=== PATIENT | male | born 1970 | race Caucasian/White ===

== ENCOUNTER 2018-01-01 12:27 | Emergency (ER) | payer MEDICARE, MEDICAID ==
[~2018-01-01] VITALS: Ht 172.7 cm; Wt 167.0 kg
[~2018-01-01 12:27] MED LIST: PHEN-873 PO
[2018-01-01 12:30] VITALS: BP 157/90
[2018-01-01] MEDS ORDERED: TETanus/Pertussis (Acell)/Diphther VAC/PF (Tdap-Adult) 0.5ml syringe IM ONE (13:55)
== END 2018-01-01 14:12 | disposition home or self-care (01) ==
LOC: ER 12:28
DX: S60.511A Abrasion of right hand, initial encounter (principal); I10 Essential (primary) hypertension; Z90.49 Acquired absence of other specified parts of digestive tract; Z79.899 Other long term (current) drug therapy; W22.8XXA Striking against or struck by other objects, initial encounter; Y93.89 Activity, other specified; Y92.89 Other specified places as the place of occurrence of the external cause; Y99.8 Other external cause status
CPT/HCPCS: 90471; 90715; 99283

== ENCOUNTER 2019-02-14 02:18 | Inpatient (IN) | payer MEDICARE, MEDICAID ==
[2019-02-14] VITALS (8 sets, daily range): BP systolic 89–127; BP diastolic 43–80
[~2019-02-14] VITALS: Ht 175.3 cm; Wt 171.7 kg
[~2019-02-14 02:18] MED LIST changes: +PHEN-786 PO; -PHEN-873 PO
--- NOTE | 2019-02-14 02:35 | NUR ---
pt to xray
[2019-02-14] MEDS ORDERED: aspirin 81mg tab.chew PO ONE (03:00)
[2019-02-14] MEDS ORDERED: normal saline 1000ml 1,000 ML IV ONE (03:28)
[2019-02-14] MEDS ORDERED: morphine 4 MG/ML inj SYRINge IV ONE (03:30)
[2019-02-14] MEDS ORDERED: nitroGLYCERIN 0.4mg/hour patch TD ONE (03:30)
[2019-02-14 03:35] LABS: PARTIAL THROMBOPLASTIN TIME 31 SECONDS (22-32)
[2019-02-14] MEDS ORDERED: iohexol 350MG/ML 100ml bottle IV ONE (03:36)
[2019-02-14 03:38] LABS: ALANINE AMINOTRANSFERASE 43 U/L (12-78); ALBUMIN 3.4 G/DL (3.4-5.0); ALBUMIN/GLOBULIN RATIO 0.9 (1.1-1.5); ALKALINE PHOSPHATASE 54 IU/L (46-116); ANION GAP 10 (8-16); ASPARTATE AMINO TRANSFERASE 17 U/L (10-37); BILIRUBIN,TOTAL 0.3 MG/DL (0.1-1.0); BLOOD UREA NITROGEN 11 MG/DL (7-18); BUN/CREATININE RATIO 11.6 (5.4-32.0); CALCIUM 8.5 MG/DL (8.5-10.1); CHLORIDE 108 MMOL/L (99-107); CREATININE 0.95 MG/DL (0.60-1.10); GLUCOSE 131 MG/DL (70-104); POTASSIUM 3.7 MMOL/L (3.5-5.1); SODIUM 143 MMOL/L (135-145); TOTAL CARBON DIOXIDE 25.3 MMOL/L (24-32); TOTAL PROTEIN 7.2 G/DL (6.4-8.2); eGFR 85 ML/MIN
[2019-02-14 04:05] LABS: BASOPHILS % (AUTO) 0.6 % (0-1); EOSINOPHILS # (AUTO) 0.1 X10'3 (0-0.9); EOSINOPHILS % (AUTO) 2.5 % (0-6); HEMOGLOBIN 15.5 g/dl (14.0-17.9); LYMPHOCYTES # (AUTO) 2.4 X10'3 (1.1-4.8); LYMPHOCYTES % (AUTO) 44.5 % (21-51); MEAN CORPUSCULAR VOLUME 90.7 FL (78-98); MEAN PLATELET VOLUME 9.7 FL (7.4-10.4); MONOCYTES # (AUTO) 0.5 X10'3 (0-0.9); MONOCYTES % (AUTO) 9.1 % (2-12); NEUTROPHILS # (AUTO) 2.4 X10'3 (1.8-7.7); NEUTROPHILS % (AUTO) 43.3 % (42-75); PLATELET COUNT 207 X10'3 (140-440); RED BLOOD COUNT 5.18 X10'6 (4.70-6.10); RED CELL DISTRIBUTION WIDTH 14.5 % (11.5-14.5); WHITE BLOOD COUNT 5.5 X10'3 (4.5-11.0)
[2019-02-14] MEDS ORDERED: ondansetron/PF 4mg/2ml inj IV PRN (05:05)
[2019-02-14] MEDS ORDERED: regadenoson 0.4mg/5ml syringe IV ONE (05:05)
[2019-02-14] MEDS ORDERED: magnesium hydroxide 30ml (MOM) UD suspension PO PRN (05:05)
[2019-02-14] MEDS ORDERED: mag hydrox/Alum hydrox/simeth 30ml oral suspension PO PRN (05:05)
[2019-02-14] MEDS ORDERED: acetaminophen 325mg tablet PO PRN (05:05)
[2019-02-14] MEDS ORDERED: aminophylline 250mg/10ml inj. IV PRN (05:05)
[2019-02-14] MEDS ORDERED: metoprolol tartrate 1mg/ml inj IV PRN (05:05)
[2019-02-14] MEDS ORDERED: nitroGLYCERIN 0.4mg SUBLingual tab SL PRN ×2 (05:05)
[2019-02-14] MEDS ORDERED: morphine 2 MG/ML inj. syringe IV PRN ×2 (05:05)
[2019-02-14] MEDS ORDERED: LISI-600 PO (05:34)
[2019-02-14] MEDS: furosemide 20 MG/2 ML vial IV SCH ×2 (05:44→07:09)
--- NOTE | 2019-02-14 06:10 | NUR ---
Patient in room MED 316. I have received report from JEN, and had the opportunity to ask questions and assume patient care.
[2019-02-14 07:59] LABS: HEMOGLOBIN A1C 6.1 % (4.5-6.2)
[2019-02-14] MEDS ORDERED: LISI10TA4 PO (10:14)
[2019-02-14] MEDS ORDERED: OMEP40CA13 PO (14:22)
--- NOTE | 2019-02-14 15:00 | NUR ---
patient needs to charge his phone for ride home his girlfriend has his car and he needs to call her to come pick him up. no other way of obtaining number. charging patient's phone at the nurse's station.
--- NOTE | 2019-02-14 15:15 | NUR ---
PROVIDED PATIENT WITH DISCHARGE INSTRUCTIONS WELL NEW PRESCRIPTION INFORMATION AND DIRECTIONS. PATIENT VERBALIZED UNDERSTANDING, AND MADE AWARE TO FOLLOW UP WITH PCP IN 1 WEEK. PATIENT'S GIRLFRIEND ARRIVED HERE TO EYEGLASS INSPECTOR THE PATIENT. IV REMOVED, CATHETER INTACT, MINIMAL BLEEDING WITH CLEAN GAUZE APPLIED AND SECURED WITH TAPE. PATIENT AMBULATED DOWNSTAIRS WITH HIS GIRLFRIEND TO GO HOME VIA PRIVATE VEHICLE, VERBALIZES NO OTHER CONCERNS.
== END 2019-02-14 15:45 | disposition home or self-care (01) | DRG 292 ==
LOC: ER 02:19 → MED 3N 06:04
PROVIDERS: ADMIT Internal Medicine; ATTEND Family Medicine
PROC: B32T1ZZ Computerized Tomography (CT Scan) of Left Pulmonary Artery using Low Osmolar Contrast (ICD-10-PCS; principal; 2019-02-14)
PROC: B3201ZZ Computerized Tomography (CT Scan) of Thoracic Aorta using Low Osmolar Contrast (ICD-10-PCS; 2019-02-14)
PROC: B32S1ZZ Computerized Tomography (CT Scan) of Right Pulmonary Artery using Low Osmolar Contrast (ICD-10-PCS; 2019-02-14)
PROC: 3E033HZ Introduction of Radioactive Substance into Peripheral Vein, Percutaneous Approach (ICD-10-PCS; 2019-02-14)
PROC: 4A02XM4 Measurement of Cardiac Total Activity, External Approach (ICD-10-PCS; 2019-02-14)
DX: I11.0 Hypertensive heart disease with heart failure (principal); Z68.43 Body mass index [BMI] 50.0-59.9, adult; I50.813 Acute on chronic right heart failure; I20.0 Unstable angina; E66.01 Morbid (severe) obesity due to excess calories; Z90.49 Acquired absence of other specified parts of digestive tract; Z82.49 Family history of ischemic heart disease and other diseases of the circulatory system; Z79.899 Other long term (current) drug therapy; I45.6 Pre-excitation syndrome; I27.81 Cor pulmonale (chronic)
CPT/HCPCS: 36415; 71046; 71275; 78452; 80053; 83036; 83735; 83880; 84484; 85025; 85610; 85730; 87081; 93005; 93017; 93308; 96361; 96374; 96375; 99285; A9500; G0378; J1940; J2270; J2785; Q9967

== ENCOUNTER 2019-08-25 08:12 | Emergency (ER) | payer MEDICARE, MEDICAID ==
[~2019-08-25] VITALS: Ht 175.3 cm; Wt 185.0 kg
[~2019-08-25 08:12] MED LIST changes: +LISI10TA4 PO; -PHEN-786 PO
[2019-08-25 08:25] VITALS: BP 147/87
[2019-08-25] MEDS ORDERED: IBUP-1985 PO (08:36)
== END 2019-08-25 09:01 | disposition home or self-care (01) ==
LOC: ER 08:13
DX: M54.12 Radiculopathy, cervical region (principal); I10 Essential (primary) hypertension; Z90.49 Acquired absence of other specified parts of digestive tract; Z98.890 Other specified postprocedural states; Z79.899 Other long term (current) drug therapy
CPT/HCPCS: 10060; 99282; 99283

== ENCOUNTER 2021-02-19 21:45 | Emergency (ER) | payer MEDICARE, MEDICAID ==
[~2021-02-19] VITALS: Ht 175.3 cm; Wt 174.5 kg
[~2021-02-19 21:45] MED LIST changes: +IBUP-1985 PO; +LISI10TA27 PO; -LISI10TA4 PO
[2021-02-19 22:48] LABS: BASOPHILS % (AUTO) 0.3 % (0-1); EOSINOPHILS % (AUTO) 0.1 % (0-6); HEMATOCRIT 46.1 % (42.0-52.0); HEMOGLOBIN 15.7 g/dl (14.0-17.9); LYMPHOCYTES # (AUTO) 0.9 X10'3 (1.1-4.8); LYMPHOCYTES % (AUTO) 13.5 % (21-51); MEAN CORPUSCULAR HEMOGLOBIN 30.5 PG (27.0-31.0); MEAN CORPUSCULAR VOLUME 89.6 FL (78-98); MEAN PLATELET VOLUME 8.6 FL (7.4-10.4); MONOCYTES # (AUTO) 0.3 X10'3 (0-0.9); NEUTROPHILS # (AUTO) 5.2 X10'3 (1.8-7.7); NEUTROPHILS % (AUTO) 81.1 % (42-75); PLATELET COUNT 163 X10'3 (140-440); RED BLOOD COUNT 5.14 X10'6 (4.70-6.10); RED CELL DISTRIBUTION WIDTH 13.5 % (11.5-14.5); WHITE BLOOD COUNT 6.5 X10'3 (4.5-11.0)
[2021-02-19 23:03] LABS: ALANINE AMINOTRANSFERASE 89 U/L (12-78); ALBUMIN 3.5 G/DL (3.4-5.0); ALBUMIN/GLOBULIN RATIO 0.9 (1.1-1.5); ALKALINE PHOSPHATASE 82 IU/L (46-116); ANION GAP 11 (8-16); ASPARTATE AMINO TRANSFERASE 52 U/L (10-37); BILIRUBIN,TOTAL 0.4 MG/DL (0.1-1.0); BLOOD UREA NITROGEN 12 MG/DL (7-18); BUN/CREATININE RATIO 10.5 (5.4-32.0); CALCIUM 8.4 MG/DL (8.5-10.1); CHLORIDE 106 MMOL/L (99-107); CREATININE 1.14 MG/DL (0.60-1.10); GLUCOSE 162 MG/DL (70-104); POTASSIUM 3.6 MMOL/L (3.5-5.1); SODIUM 141 MMOL/L (135-145); TOTAL CARBON DIOXIDE 24.4 MMOL/L (24-32); TOTAL PROTEIN 7.6 G/DL (6.4-8.2); eGFR 68 ML/MIN
[2021-02-19 23:07] LABS: BILIRUBIN,DIRECT 0.1 MG/DL (0-0.3); LIPASE < 50 U/L (73-393); TROPONIN I < 0.04 NG/ML (0.0-0.05)
[2021-02-20] MEDS ORDERED: metoclopramide 5 mg/ml inj IV ONE (00:45)
[2021-02-20] MEDS ORDERED: diphenhydrAMINE 50 mg/ml inj IV ONE (00:45)
[2021-02-20] MEDS ORDERED: iohexol 350MG/ML 100ml bottle IV ONE (01:33)
[2021-02-20] MEDS ORDERED: ALBU8HFA PO (02:21)
--- NOTE | 2021-02-20 02:21 | NUR ---
PT IS NOT ON OXYGEN. HE IS MAINTAINING AN OXYGEN SATURATION OF 98% ON RA. HE GOT UP AND USED BEDSIDE COMMODE W/ NO INCREASED SOB.
[2021-02-20 02:49] VITALS: BP 140/97
--- NOTE | 2021-02-21 10:59 | NUR ---
Patient called ER stated that he had left his prescription in the taxi the other night. Educated patient that I would call in RX per Dr. Akhtar orders as of 02/19/21. Patient requested RX for proair inhaler 8.5 gm 1-2 puffs PO Q4H PRN for SOB, #[address] Akhtar to be called in to [facility] in [place]. Called in prescription at 1050.
== END 2021-02-20 02:51 | disposition home or self-care (01) ==
LOC: ER 21:46
DX: U07.1 COVID-19 (principal); R10.84 Generalized abdominal pain; I11.0 Hypertensive heart disease with heart failure; I50.9 Heart failure, unspecified; Z90.49 Acquired absence of other specified parts of digestive tract; Z79.899 Other long term (current) drug therapy
CPT/HCPCS: 36415; 71045; 71275; 80048; 80076; 83605; 83690; 84484; 85025; 87635; 93005; 96374; 96375; 99285; C9803; J1200; J2765; Q9967

== ENCOUNTER 2021-02-23 10:10 | Inpatient (IN) | payer MEDICARE, MEDICAID ==
[~2021-02-23] VITALS: Ht 175.3 cm; Wt 174.0 kg
[~2021-02-23 10:10] MED LIST changes: +ALBU8HFA PO; +etomidate 2mg/ml inj. ONE; +rocuronium 10mg/ml inj IV ONE
[2021-02-23 10:43] LABS: ABG BASE EXCESS 1.3 mmol/L (-2.0-2.0); ABG OXYGEN SATURATION 93.1 % (94-97); ABG PCO2 (T) 33.3 mmHg (35.0-48.0); ABG PO2 (T) 64.7 mmHg (75.0-100.0); ALLEN'S TEST POSITIVE; FCOHb 0.3 % (0.0-3.9); FLOW 15 L/min; FMetHb 0.2 % (0.0-1.5); FO2Hb 92.6 % (94-97); PATIENT TEMPERATURE 37.2; TOTAL HEMOGLOBIN 16.6 G/dl (14.0-18.0)
--- NOTE | 2021-02-23 10:50 | NUR ---
patient placed into a gown,call light within reach.
[2021-02-23 11:06] LABS: BASOPHILS % (AUTO) 0.2 % (0-1); EOSINOPHILS % (AUTO) 0 % (0-6); HEMATOCRIT 48.5 % (42.0-52.0); HEMOGLOBIN 16.5 g/dl (14.0-17.9); LYMPHOCYTES % (AUTO) 22.9 % (21-51); MEAN CORPUSCULAR HEMOGLOBIN 30.7 PG (27.0-31.0); MEAN CORPUSCULAR VOLUME 90.3 FL (78-98); MEAN PLATELET VOLUME 9.1 FL (7.4-10.4); MONOCYTES # (AUTO) 0.4 X10'3 (0-0.9); MONOCYTES % (AUTO) 8.4 % (2-12); NEUTROPHILS % (AUTO) 68.5 % (42-75); PLATELET COUNT 175 X10'3 (140-440); RED BLOOD COUNT 5.37 X10'6 (4.70-6.10); RED CELL DISTRIBUTION WIDTH 13.8 % (11.5-14.5); WHITE BLOOD COUNT 4.3 X10'3 (4.5-11.0)
[2021-02-23] MEDS ORDERED: dexamethasone sod phosphate 10mg/ml inj IV STA (11:07)
[2021-02-23 11:20] LABS: ALANINE AMINOTRANSFERASE 64 U/L (12-78); ALBUMIN/GLOBULIN RATIO 0.6 (1.1-1.5); ALKALINE PHOSPHATASE 72 IU/L (46-116); ANION GAP 10 (8-16); ASPARTATE AMINO TRANSFERASE 53 U/L (10-37); BILIRUBIN,TOTAL 0.4 MG/DL (0.1-1.0); BLOOD UREA NITROGEN 13 MG/DL (7-18); BUN/CREATININE RATIO 12.1 (5.4-32.0); CALCIUM 8.4 MG/DL (8.5-10.1); CHLORIDE 105 MMOL/L (99-107); CREATININE 1.07 MG/DL (0.60-1.10); GLUCOSE 175 MG/DL (70-104); POTASSIUM 3.9 MMOL/L (3.5-5.1); SODIUM 142 MMOL/L (135-145); eGFR 73 ML/MIN
[2021-02-23] MEDS ORDERED: ATOR20TA66 PO (11:39)
[2021-02-23] MEDS ORDERED: METF-950 PO (11:39)
[2021-02-23] MEDS ORDERED: LISI20TA28 PO (11:39)
[2021-02-23] MEDS ORDERED: magnesium 2GM in 50ml NS 50 ML IV PRN (11:45)
[2021-02-23] MEDS ORDERED: HYDROcodone/acetaminophen 5mg/325mg tablet PO PRN (11:45)
[2021-02-23] MEDS ORDERED: potassium Cl 40MEQ/1/2NS 520ml 520 ML IV PRN ×2 (11:45)
[2021-02-23] MEDS ORDERED: magnesium 4gm in 100ml NS 100 ML IV PRN (11:45)
[2021-02-23] MEDS ORDERED: glucagon, human recombinant 1mg kit SUBCUT PRN (11:45)
[2021-02-23] MEDS ORDERED: acetaminophen 325mg tablet PO PRN ×2 (11:45)
[2021-02-23] MEDS ORDERED: dextrose 50%-water 50ml dispensing syringe IV PRN ×2 (11:45)
[2021-02-23] MEDS ORDERED: magnesium hydroxide 30ml (MOM) UD suspension PO PRN (11:45)
[2021-02-23] MEDS ORDERED: mag hydrox/Alum hydrox/simeth 30ml oral suspension PO PRN (11:45)
[2021-02-23] MEDS ORDERED: ALBUTEROL INHALER 1 PUFF/90 MCG INHALER IH PRN (11:45)
[2021-02-23] MEDS ORDERED: dextrose ORAL solution 15 GM/59 ML bottle PO PRN ×2 (11:45)
[2021-02-23] MEDS ORDERED: MESSAGE TO PHARMACY PO ONE (11:45)
[2021-02-23] MEDS ORDERED: potassium Cl 20 mEq SR tablet PO PRN ×2 (11:45)
[2021-02-23 12:18] LABS: D-DIMER 0.33 MG/L FEU (0-0.50)
--- NOTE | 2021-02-23 14:06 | NUR ---
patient feels "hot", temp rechecked, 98.5 orally.
--- NOTE | 2021-02-23 14:07 | NUR ---
dark sputum during coughing episode, aware.
[2021-02-23 14:14] LABS: HEMOGLOBIN A1C 9.3 % (4.5-6.2)
[2021-02-23 14:21] LABS: C-REACTIVE PROTEIN 9.87 MG/DL (0.0-0.5)
--- NOTE | 2021-02-23 18:36 | NUR ---
Problems reprioritized. Patient report given, questions answered & plan of care reviewed with UMBERTO PARIKH.
[2021-02-23] MEDS ORDERED: enoxaparin 100mg/ml syringe SQ SCH (20:00)
[2021-02-23] MEDS: K and/or MAG REPLACEMENT MC SCH (20:00)
[2021-02-23] MEDS ORDERED: dexamethasone 4mg/ml inj IV SCH (20:00)
[2021-02-23] MEDS: dexamethasone 6 MG in NS 50ml IV soln IV SCH (20:55)
[2021-02-23] MEDS: docusate sod 100mg capsule PO SCH (20:56)
[2021-02-23] MEDS: insulin glargine (Lantus) pen - multi-dose SQ SCH (21:00)
[2021-02-23 22:00] VITALS: BP 118/69
[2021-02-23] MEDS: insulin Lispro (HumaLOG) vial - multi-dose SQ SCH (22:13)
[2021-02-24 02:00] VITALS: BP 149/115
[2021-02-24] MEDS: HYDROcodone/acetaminophen 10/325mg tab PO PRN ×2 (05:00→22:07)
--- NOTE | 2021-02-24 06:38 | NUR ---
Problems reprioritized. Patient report given, questions answered & plan of care reviewed with Charlie PARIKH.
[2021-02-24] MEDS: docusate sod 100mg capsule PO SCH ×2 (08:00→19:34)
[2021-02-24] MEDS: K and/or MAG REPLACEMENT MC SCH ×2 (08:00→19:33)
[2021-02-24 08:43] LABS: BASOPHILS % (AUTO) 0.2 % (0-1); EOSINOPHILS % (AUTO) 0 % (0-6); HEMATOCRIT 49.1 % (42.0-52.0); HEMOGLOBIN 16.6 g/dl (14.0-17.9); LYMPHOCYTES # (AUTO) 0.7 X10'3 (1.1-4.8); LYMPHOCYTES % (AUTO) 20.6 % (21-51); MEAN CORPUSCULAR HEMOGLOBIN 30.4 PG (27.0-31.0); MEAN CORPUSCULAR HGB CONC 33.8 g/dL (33.0-36.5); MEAN CORPUSCULAR VOLUME 89.7 FL (78-98); MEAN PLATELET VOLUME 9.4 FL (7.4-10.4); MONOCYTES # (AUTO) 0.3 X10'3 (0-0.9); MONOCYTES % (AUTO) 9.6 % (2-12); NEUTROPHILS # (AUTO) 2.2 X10'3 (1.8-7.7); NEUTROPHILS % (AUTO) 69.6 % (42-75); PLATELET COUNT 167 X10'3 (140-440); RED BLOOD COUNT 5.48 X10'6 (4.70-6.10); RED CELL DISTRIBUTION WIDTH 13.9 % (11.5-14.5); WHITE BLOOD COUNT 3.2 X10'3 (4.5-11.0)
[2021-02-24] MEDS: lisinopril 20mg tablet PO SCH (09:16)
[2021-02-24] MEDS: dexamethasone 6 MG in NS 50ml IV soln IV SCH (09:16)
[2021-02-24] MEDS: atorvastatin 20mg tablet PO SCH (09:17)
[2021-02-24 09:28] LABS: ALANINE AMINOTRANSFERASE 59 U/L (12-78); ALBUMIN/GLOBULIN RATIO 0.6 (1.1-1.5); ALKALINE PHOSPHATASE 72 IU/L (46-116); ANION GAP 14 (8-16); ASPARTATE AMINO TRANSFERASE 41 U/L (10-37); BILIRUBIN,TOTAL 0.5 MG/DL (0.1-1.0); BLOOD UREA NITROGEN 18 MG/DL (7-18); CHLORIDE 106 MMOL/L (99-107); GLUCOSE 203 MG/DL (70-104); MAGNESIUM 2.7 MG/DL (1.5-2.4); POTASSIUM 4.5 MMOL/L (3.5-5.1); SODIUM 143 MMOL/L (135-145); TOTAL CARBON DIOXIDE 23.4 MMOL/L (24-32); TOTAL PROTEIN 8.1 G/DL (6.4-8.2); eGFR 89 ML/MIN
[2021-02-24] MEDS: insulin Lispro (HumaLOG) vial - multi-dose SQ SCH ×3 (09:29→21:16)
[2021-02-24 10:00] VITALS: BP 113/63
--- NOTE | 2021-02-24 10:13 | NUR ---
DM Consult: Pt admit DX COVID-19 PNA and acute respiratory failure per EMR. Pt A1C 9.3% w/ only hx pre-diabetes A1C 6.1 2019 taking metformin at home BUNCH BREAKER per EMR; likely new DX this admit. Glu 170-245mg/dl on dexamethasone as well as glycemic protocol. Pt would benefit from DM DX by this admit; unable to provide DM ed until pt aware of new DX. Pt PO 0% first heart healthy/carb controlled meal last night pending PO hx this AM. LBM 02/22. Will continue to monitor for ONS needs pending further PO trends this admit. Pt would benefit from DM ed once more appropriate following DM DX. Rec: 1. continue carb controlled/heart healthy diet per MD 2. monitor for ONS needs pending PO trends 3. routine bowel care 4. scaled wt this admit; subsequent weekly wts 5. DM DX by A1C 9.3% up from 6.1% 2019 and only reported hx pre-diabetes. DM ed by RD following DM DX by once pt more appropriate prior to discharge. Addendum: 02/24/21 at [address] Amended: Links added.
[2021-02-24] MEDS ORDERED: REMDESIVIR INJ 200 MG in normal saline 100ml IV soln 60 ML IV ONE (10:45)
[2021-02-24 14:00] VITALS: BP 86/52
[2021-02-24] MEDS: methylPREDNISolone sod succ 125mg/2ml vial IV SCH (15:30)
[2021-02-24 18:00] VITALS: BP 91/53
--- NOTE | 2021-02-24 18:00 | NUR ---
also on 15 liters NRB mask Addendum: 02/24/21 at 2135 by Bere Marin RN Amended: Links added.
--- NOTE | 2021-02-24 18:19 | NUR ---
Problems reprioritized. Patient report given, questions answered & plan of care reviewed with UMBERTO PARIKH.
[2021-02-24] MEDS ORDERED: enoxaparin 80mg/0.8ml syringe SUBCUT SCH (20:00)
[2021-02-24] MEDS: insulin glargine (Lantus) pen - multi-dose SQ SCH (21:15)
[2021-02-24] MEDS: enoxaparin 40mg/0.4ml syringe SUBCUT SCH (21:17)
[2021-02-24 22:16] LABS: ABG BASE EXCESS -1.4 mmol/L (-2.0-2.0); ABG HCO3 22.4 mmol/L (22.0-26.0); ABG PCO2 (T) 35.6 mmHg (35.0-48.0); ABG PO2 (T) 46.3 mmHg (75.0-100.0); ALLEN'S TEST POSITIVE; FCOHb 0.4 % (0.0-3.9); FLOW 55 L/min; FMetHb 0.1 % (0.0-1.5); FO2Hb 81.6 % (94-97); PATIENT TEMPERATURE 36.9; TOTAL HEMOGLOBIN 16.9 G/dl (14.0-18.0)
[2021-02-24 22:20] VITALS: BP 102/57
--- NOTE | 2021-02-24 22:20 | NUR ---
I called Dr. Hughes asking for something for pt's elevated respirations and pain and informed her that his oxygen saturation had gone down and that respiratory therapy had put him on the tower with a NRB mask. She gave me order to get another abg and monitor his vitals often.
--- NOTE | 2021-02-24 22:28 | NUR ---
Dr. Hughes was called with the abg results on patient and she said she had already looked at them and wanted the patient on a BIPAP and to monitor his vitals often and to not give him anymore pain medicine.
[2021-02-24] MEDS ORDERED: morphine 2 MG/ML inj. syringe IV ONE (22:30)
[2021-02-24 23:41] LABS: ABG BASE EXCESS -0.1 mmol/L (-2.0-2.0); ABG HCO3 24.8 mmol/L (22.0-26.0); ABG OXYGEN SATURATION 84.1 % (94-97); ABG PO2 (T) 49.5 mmHg (75.0-100.0); ALLEN'S TEST POSITIVE; FCOHb 0.1 % (0.0-3.9); FMetHb 0.3 % (0.0-1.5); FO2Hb 83.8 % (94-97); PATIENT TEMPERATURE 36.9; RESPIRATORY RATE 12 b/min; TOTAL HEMOGLOBIN 16.9 G/dl (14.0-18.0)
[2021-02-25] VITALS (20 sets, daily range): BP systolic 86–142; BP diastolic 45–81
[2021-02-25] MEDS: methylPREDNISolone sod succ 125mg/2ml vial IV SCH ×3 (00:43→15:35)
--- NOTE | 2021-02-25 01:12 | NUR ---
Pt O2 Sats between 81-84% on BiPap called RT they said they are not able to come up at this time and there are no further interventions they can do.
--- NOTE | 2021-02-25 01:30 | NUR ---
Paged Dr Hughes and she stated she would like another ABG drawn.
[2021-02-25 01:41] LABS: ABG BASE EXCESS -0.7 mmol/L (-2.0-2.0); ABG HCO3 24.5 mmol/L (22.0-26.0); ABG OXYGEN SATURATION 81.7 % (94-97); ABG PO2 (T) 47.6 mmHg (75.0-100.0); ALLEN'S TEST POSITIVE; FCOHb 0.1 % (0.0-3.9); FMetHb 0.2 % (0.0-1.5); FO2Hb 81.5 % (94-97); RESPIRATORY RATE 12 b/min; TOTAL HEMOGLOBIN 16.8 G/dl (14.0-18.0)
--- NOTE | 2021-02-25 02:08 | NUR ---
Dr. Elmore and Saul at bedside to evaluate Pt
[2021-02-25] MEDS ORDERED: dexmedetomidin/NS 400mcg/100ml 100 ML IV SCH (04:25)
[2021-02-25] MEDS ORDERED: NORepinephrine 8mg/ 250ml NS 250 ML IV ONE (04:27)
[2021-02-25] MEDS: dexmedetomidine/D5W 100mL 100 ML IV SCH ×4 (04:34→21:49)
--- NOTE | 2021-02-25 04:56 | NUR ---
I have received report and assumed care of pt, Pt resting in bed rise and fall of chest cavity equile and symmetrical, Spoke to Pts Niece updated her on pts transfer to ICU and possible intubation. Family would like to hold off intubation if at all possible.
--- NOTE | 2021-02-25 05:14 | NUR ---
spoke to Dr. Long updating him on pts condition, will hold of intubation for now, Levophed to keep MAP greater then 60
--- NOTE | 2021-02-25 06:15 | NUR ---
Patient in room CICU 2009. I have received report from Daysi Bello RN and had the opportunity to ask questions and assume patient care.
--- NOTE | 2021-02-25 06:16 | NUR ---
report given to rec rn plan of care reviewed
[2021-02-25 07:22] LABS: BASOPHILS % (AUTO) 0.1 % (0-1); D-DIMER 0.25 MG/L FEU (0-0.50); EOSINOPHILS % (AUTO) 0 % (0-6); HEMATOCRIT 49.5 % (42.0-52.0); HEMOGLOBIN 16.4 g/dl (14.0-17.9); LYMPHOCYTES # (AUTO) 0.9 X10'3 (1.1-4.8); LYMPHOCYTES % (AUTO) 7.4 % (21-51); MEAN CORPUSCULAR HEMOGLOBIN 30.2 PG (27.0-31.0); MEAN CORPUSCULAR HGB CONC 33.2 g/dL (33.0-36.5); MEAN PLATELET VOLUME 9.7 FL (7.4-10.4); MONOCYTES # (AUTO) 0.8 X10'3 (0-0.9); MONOCYTES % (AUTO) 6.5 % (2-12); NEUTROPHILS # (AUTO) 10.1 X10'3 (1.8-7.7); PLATELET COUNT 267 X10'3 (140-440); RED BLOOD COUNT 5.45 X10'6 (4.70-6.10); RED CELL DISTRIBUTION WIDTH 14.1 % (11.5-14.5); WHITE BLOOD COUNT 11.8 X10'3 (4.5-11.0)
[2021-02-25 07:31] LABS: ALANINE AMINOTRANSFERASE 54 U/L (12-78); ALBUMIN 3.1 G/DL (3.4-5.0); ALBUMIN/GLOBULIN RATIO 0.6 (1.1-1.5); ALKALINE PHOSPHATASE 74 IU/L (46-116); ANION GAP 10 (8-16); ASPARTATE AMINO TRANSFERASE 38 U/L (10-37); BILIRUBIN,TOTAL 0.6 MG/DL (0.1-1.0); BLOOD UREA NITROGEN 50 MG/DL (7-18); BUN/CREATININE RATIO 22.2 (5.4-32.0); C-REACTIVE PROTEIN 5.67 MG/DL (0.0-0.5); CALCIUM 9.3 MG/DL (8.5-10.1); CHLORIDE 103 MMOL/L (99-107); CREATININE 2.25 MG/DL (0.60-1.10); GLUCOSE 283 MG/DL (70-104); MAGNESIUM 2.7 MG/DL (1.5-2.4); POTASSIUM 4.3 MMOL/L (3.5-5.1); SODIUM 136 MMOL/L (135-145); TOTAL CARBON DIOXIDE 23.1 MMOL/L (24-32); eGFR 31 ML/MIN
[2021-02-25] MEDS: atorvastatin 20mg tablet PO SCH (08:00)
[2021-02-25] MEDS: lisinopril 20mg tablet PO SCH (08:00)
[2021-02-25] MEDS: enoxaparin 40mg/0.4ml syringe SUBCUT SCH ×2 (08:01→20:46)
[2021-02-25] MEDS: REMDESIVIR INJ 100 MG in normal saline 100ml IV soln 80 ML IV SCH (08:49)
[2021-02-25] MEDS: docusate sod 100mg capsule PO SCH ×2 (08:50→20:45)
[2021-02-25] MEDS: K and/or MAG REPLACEMENT MC SCH ×2 (08:51→20:00)
[2021-02-25] MEDS: NORepinephrine 8mg/ 250ml NS 250 ML IV SCH ×3 (09:00→19:45)
--- NOTE | 2021-02-25 09:52 | NUR ---
ID Visit; Dr Castro to see pt. Expects pt will be intubated soon due to pts resp status.
--- NOTE | 2021-02-25 10:13 | NUR ---
Decompensating Pts O2 sats continue to decrease inspite of decreasing air leak and repositioning. Explained that he would probably need to be put on the vent. He stated he didnt want to .
[2021-02-25] MEDS: insulin Lispro (HumaLOG) vial - multi-dose SQ SCH ×3 (10:21→21:24)
[2021-02-25 10:38] LABS: ABG BASE EXCESS -3.7 mmol/L (-2.0-2.0); ABG HCO3 20.1 mmol/L (22.0-26.0); ABG OXYGEN SATURATION 75.1 % (94-97); ABG PCO2 (T) 33.3 mmHg (35.0-48.0); ALLEN'S TEST POSITIVE; FCOHb 0.3 % (0.0-3.9); FMetHb 0.3 % (0.0-1.5); FO2Hb 74.6 % (94-97); RESPIRATORY RATE 12 b/min; TIDAL VOLUME 568 mL
[2021-02-25] MEDS: normal saline 1000ml 1,000 ML IV SCH ×2 (10:50→18:50)
--- NOTE | 2021-02-25 12:38 | NUR ---
Resp Status. Pts sats decreasing around 930. Discussed with CN and RT. ABGs showed PaO2 down to 41. MD notified, options discussed. BiPAP mask changed to Lg size, Dutta cath placed as pt struggling to urinate. Over 1000 cc with cath placement. Pt then rolled himself onto his Rt side. Sats up markedly to low 90s. Tolerating his side much better. 1200 rolled himself to his left side with same results, BP down, HR down, SaO2 up to 90s.
--- NOTE | 2021-02-25 18:31 | NUR ---
Problems reprioritized. Patient report given, questions answered & plan of care reviewed with Nellie PARIKH.
[2021-02-25] MEDS: insulin glargine (Lantus) pen - multi-dose SQ SCH (21:23)
[2021-02-26] VITALS (24 sets, daily range): BP systolic 90–127; BP diastolic 44–83
[2021-02-26] MEDS: methylPREDNISolone sod succ 125mg/2ml vial IV SCH ×3 (00:16→16:20)
[2021-02-26] MEDS: normal saline 1000ml 1,000 ML IV SCH ×4 (01:15→22:57)
[2021-02-26] MEDS: NORepinephrine 8mg/ 250ml NS 250 ML IV SCH ×3 (03:25→18:45)
[2021-02-26] MEDS: dexmedetomidine/D5W 100mL 100 ML IV SCH ×4 (03:34→20:49)
[2021-02-26] MEDS: ondansetron/PF 4mg/2ml inj IV PRN ×2 (03:42→22:51)
[2021-02-26] MEDS: morphine 2 MG/ML inj. syringe IV PRN ×2 (03:43→22:52)
--- NOTE | 2021-02-26 06:10 | NUR ---
Problems reprioritized. Patient report given, questions answered & plan of care reviewed with JL Caro.
--- NOTE | 2021-02-26 06:15 | NUR ---
Patient in room CICU 2009. I have received report from Nellie PARIKH and had the opportunity to ask questions and assume patient care.
[2021-02-26] MEDS: K and/or MAG REPLACEMENT MC SCH ×2 (08:00→20:00)
[2021-02-26] MEDS: atorvastatin 20mg tablet PO SCH (08:20)
[2021-02-26] MEDS: REMDESIVIR INJ 100 MG in normal saline 100ml IV soln 80 ML IV SCH (08:20)
[2021-02-26] MEDS: docusate sod 100mg capsule PO SCH ×2 (08:20→20:00)
[2021-02-26] MEDS: enoxaparin 40mg/0.4ml syringe SUBCUT SCH (08:20)
--- NOTE | 2021-02-26 08:53 | NUR ---
Resp Note Dr. Martin asked to try to feed pt. Pt able to move himself. He was position in high fowlers position. BiPaP was removed and NC @ 15 and non-rebreather placed. His sats dropped from 92 to 88 which was acceptable for him. He took his 2 am meds with this in place. Refused any of his breakfast at this time. His head was lowered and he turned on his Lt side and maintained his sats in the hi 80s. We'll leave him on this unless his resp status changes.
[2021-02-26] MEDS: insulin Lispro (HumaLOG) vial - multi-dose SQ SCH ×4 (09:23→22:11)
[2021-02-26] MEDS: lactose-reduced food (Ensure Enlive) - 237ml bottle PO SCH ×2 (13:00→18:00)
[2021-02-26 16:24] LABS: BASOPHILS % (AUTO) 0.1 % (0-1); EOSINOPHILS % (AUTO) 0 % (0-6); HEMATOCRIT 46.5 % (42.0-52.0); HEMOGLOBIN 15.5 g/dl (14.0-17.9); LYMPHOCYTES # (AUTO) 0.5 X10'3 (1.1-4.8); LYMPHOCYTES % (AUTO) 4.9 % (21-51); MEAN CORPUSCULAR HEMOGLOBIN 29.8 PG (27.0-31.0); MEAN CORPUSCULAR HGB CONC 33.4 g/dL (33.0-36.5); MEAN CORPUSCULAR VOLUME 89.1 FL (78-98); MEAN PLATELET VOLUME 9.4 FL (7.4-10.4); MONOCYTES # (AUTO) 0.6 X10'3 (0-0.9); MONOCYTES % (AUTO) 5.9 % (2-12); NEUTROPHILS # (AUTO) 9.2 X10'3 (1.8-7.7); NEUTROPHILS % (AUTO) 89.1 % (42-75); PLATELET COUNT 220 X10'3 (140-440); RED BLOOD COUNT 5.22 X10'6 (4.70-6.10); RED CELL DISTRIBUTION WIDTH 13.9 % (11.5-14.5); WHITE BLOOD COUNT 10.3 X10'3 (4.5-11.0)
[2021-02-26 16:37] LABS: D-DIMER 0.39 MG/L FEU (0-0.50)
[2021-02-26 16:45] LABS: ALANINE AMINOTRANSFERASE 47 U/L (12-78); ALBUMIN 2.5 G/DL (3.4-5.0); ALBUMIN/GLOBULIN RATIO 0.6 (1.1-1.5); ALKALINE PHOSPHATASE 64 IU/L (46-116); ANION GAP 10 (8-16); ASPARTATE AMINO TRANSFERASE 24 U/L (10-37); BILIRUBIN,TOTAL 0.3 MG/DL (0.1-1.0); BLOOD UREA NITROGEN 48 MG/DL (7-18); BUN/CREATININE RATIO 30.8 (5.4-32.0); C-REACTIVE PROTEIN 3.76 MG/DL (0.0-0.5); CALCIUM 8.6 MG/DL (8.5-10.1); CHLORIDE 114 MMOL/L (99-107); CREATININE 1.56 MG/DL (0.60-1.10); GLUCOSE 314 MG/DL (70-104); MAGNESIUM 2.8 MG/DL (1.5-2.4); POTASSIUM 4.5 MMOL/L (3.5-5.1); SODIUM 149 MMOL/L (135-145); TOTAL PROTEIN 6.7 G/DL (6.4-8.2); eGFR 47 ML/MIN
--- NOTE | 2021-02-26 17:56 | NUR ---
Event About 1739, sat pt up, suspended BiPap and he had 2 sips of Ensure. He then went into tacycardia, likely afib. notified. Orders received.
[2021-02-26] MEDS ORDERED: amiodarone 150mg/dext, iso-os 100 ML IV ONE (18:00)
--- NOTE | 2021-02-26 18:30 | NUR ---
Patient in room CICU 2009. I have received report from JL Caro and had the opportunity to ask questions and assume patient care. Patient is in afib w/RVR, amiodarone was just started. The patient is resting comfortably in no obvious distress, I will continue to monitor.
[2021-02-26] MEDS: amiodarone/D5 360MG/200ML BAG 200 ML IV SCH (18:47)
--- NOTE | 2021-02-26 19:00 | NUR ---
Patient's niece called for update on Gallito, I advised her there has been no change and he is still on Bipap 100%. She mentioned her grandmother the patient's mother rec'd a call from social service manager "Violeta" and that upset her and now she fears the worst. I advised the niece to call SS in the morning talk with them. I will also [facility]. She also advised me of the patient's learning disabilities and that he is on SSI.
[2021-02-26] MEDS: insulin glargine (Lantus) pen - multi-dose SQ SCH (21:00)
[2021-02-26] MEDS: enoxaparin 50mg/0.5ml (from 3ml vial) syringe SUBCUT SCH (21:09)
[2021-02-26] MEDS: enoxaparin 100mg/ml syringe SUBCUT SCH (21:09)
[2021-02-27] VITALS (24 sets, daily range): BP systolic 74–185; BP diastolic 35–98
[2021-02-27] MEDS: methylPREDNISolone sod succ 125mg/2ml vial IV SCH ×3 (00:06→16:21)
[2021-02-27] MEDS: amiodarone/D5 360MG/200ML BAG 200 ML IV SCH ×4 (00:13→21:46)
[2021-02-27] MEDS: dexmedetomidine/D5W 100mL 100 ML IV SCH ×3 (01:01→14:04)
--- NOTE | 2021-02-27 01:06 | NUR ---
Patient has been restless tonight, keeps moving and touching Bipap mask. He knows he needs to lay on his side or his O2 levels drop, but he keeps rolling on to his back. There is an order for Precedex and I will start this as long as his BP and HR remain WNL.
--- NOTE | 2021-02-27 02:00 | NUR ---
Patient had Bipap mask off and was pulling at things,w SpO2 80% and BP 74/37. Patient was reoriented and repositioned, Levo will be started for decreased BP and Precedex turned off.
[2021-02-27] MEDS: NORepinephrine 8mg/ 250ml NS 250 ML IV SCH ×3 (02:46→21:39)
[2021-02-27 03:11] LABS: BASOPHILS % (AUTO) 0.3 % (0-1); EOSINOPHILS % (AUTO) 0 % (0-6); HEMATOCRIT 46.3 % (42.0-52.0); HEMOGLOBIN 15.4 g/dl (14.0-17.9); LYMPHOCYTES # (AUTO) 0.3 X10'3 (1.1-4.8); LYMPHOCYTES % (AUTO) 2.8 % (21-51); MEAN CORPUSCULAR HEMOGLOBIN 30.3 PG (27.0-31.0); MEAN CORPUSCULAR HGB CONC 33.2 g/dL (33.0-36.5); MEAN CORPUSCULAR VOLUME 91.3 FL (78-98); MEAN PLATELET VOLUME 9.6 FL (7.4-10.4); MONOCYTES # (AUTO) 0.6 X10'3 (0-0.9); MONOCYTES % (AUTO) 5.7 % (2-12); NEUTROPHILS # (AUTO) 9.1 X10'3 (1.8-7.7); NEUTROPHILS % (AUTO) 91.2 % (42-75); PLATELET COUNT 209 X10'3 (140-440); RED BLOOD COUNT 5.07 X10'6 (4.70-6.10); RED CELL DISTRIBUTION WIDTH 13.8 % (11.5-14.5)
[2021-02-27 03:24] LABS: D-DIMER 0.39 MG/L FEU (0-0.50)
[2021-02-27 03:34] LABS: ALANINE AMINOTRANSFERASE 43 U/L (12-78); ALBUMIN 2.4 G/DL (3.4-5.0); ALBUMIN/GLOBULIN RATIO 0.6 (1.1-1.5); ALKALINE PHOSPHATASE 62 IU/L (46-116); ANION GAP 10 (8-16); ASPARTATE AMINO TRANSFERASE 25 U/L (10-37); BILIRUBIN,TOTAL 0.2 MG/DL (0.1-1.0); BLOOD UREA NITROGEN 45 MG/DL (7-18); BUN/CREATININE RATIO 29.8 (5.4-32.0); C-REACTIVE PROTEIN 3.43 MG/DL (0.0-0.5); CALCIUM 8.3 MG/DL (8.5-10.1); CHLORIDE 115 MMOL/L (99-107); CREATININE 1.51 MG/DL (0.60-1.10); GLUCOSE 335 MG/DL (70-104); MAGNESIUM 2.8 MG/DL (1.5-2.4); POTASSIUM 4.2 MMOL/L (3.5-5.1); SODIUM 150 MMOL/L (135-145); TOTAL CARBON DIOXIDE 25.4 MMOL/L (24-32); TOTAL PROTEIN 6.5 G/DL (6.4-8.2); eGFR 49 ML/MIN
--- NOTE | 2021-02-27 06:15 | NUR ---
Patient in room CICU 2009. I have received report from Nellie PARIKH and had the opportunity to ask questions and assume patient care.
--- NOTE | 2021-02-27 06:17 | NUR ---
Problems reprioritized. Patient report given, questions answered & plan of care reviewed with JL Caro.
[2021-02-27] MEDS: docusate sod 100mg capsule PO SCH ×2 (07:28→21:08)
[2021-02-27] MEDS: REMDESIVIR INJ 100 MG in normal saline 100ml IV soln 80 ML IV SCH (07:28)
[2021-02-27] MEDS: atorvastatin 20mg tablet PO SCH (07:28)
[2021-02-27] MEDS: enoxaparin 100mg/ml syringe SUBCUT SCH ×2 (07:29→20:00)
[2021-02-27] MEDS: insulin Lispro (HumaLOG) vial - multi-dose SQ SCH ×4 (07:59→21:21)
[2021-02-27] MEDS: lactose-reduced food (Ensure Enlive) - 237ml bottle PO SCH ×3 (08:00→18:00)
[2021-02-27] MEDS: K and/or MAG REPLACEMENT MC SCH ×2 (08:00→20:00)
--- NOTE | 2021-02-27 09:15 | NUR ---
Oral Intake I attempted to have him drink Ensure. BiPAP was taken off and non-rebreather was placed but he couldnt suck the fluid from the bottle via straw. BiPAP replaced, pt on his side. O2 recovered
[2021-02-27] MEDS: enoxaparin 50mg/0.5ml (from 3ml vial) syringe SUBCUT SCH ×2 (10:44→21:10)
--- NOTE | 2021-02-27 12:13 | NUR ---
Note Pt c/o discomfort at groin. Noted excoriated area at Rt groin area. Cleaned well and Interdry put in the folds what are reddened. Addendum: 02/27/21 at 1219 by Gordo Vera RN MD aware that pt not able to drink ensure. Order for gastric feed tube.
--- NOTE | 2021-02-27 12:27 | NUR ---
Reassessment: Pt PO remains poor 0% carb controlled meals since admit 4 days and refused first Ensure Enlive last night on full face bipap at 28.9L/min per EMR. Noted diet cancelled in EMR; RD d/w RN who reports pt too weak to suck ONS through straw pending corpak today for nutrition if possible. TF recs below given pt needs in case to start. LBM 02/23 receiving routine colace; 4 days constipation. Serum Na 150 this AM up from 136 on 02/25 likely influenced by NS at 125ml/hr in additional to no PO since admit. Will monitor for nutrition needs this admit. Rec: 1. continue NPO per MD given respiratory status 2. IF corpak placement for nutrition; Continuous TF using Vital AF at 80ml/hr goal to provide 1920ml volume/day, 2304 kcals, 1555ml free water, and 144g protein. 3. IF TF; additional water flush 200ml Q4H 4. IF TF; PALB Q /; daily wts 5. routine bowel care; 4 days constipation 6. scaled wt this admit; subsequent weekly wts 7. DM DX by A1C 9.3% up from 6.1% 2019 and only reported hx pre-diabetes. DM ed by RD following DM DX by MD once pt more appropriate prior to discharge. Addendum: 02/27/21 at [address] Amended: Links added.
--- NOTE | 2021-02-27 14:49 | NUR ---
Tube Feed Attempted [address] corpak unsuccessfully. CN attempted one of those times. Will discuss with .
[2021-02-27] MEDS ORDERED: metoprolol tartrate 1mg/ml inj IV ONE (14:55)
[2021-02-27] MEDS: normal saline 1000ml 1,000 ML IV SCH (15:09)
--- NOTE | 2021-02-27 15:30 | NUR ---
RT update BiPAP changed to full mask. Pt more comfortable with this version. Lopressor with minor effect on pts HR. aware.
[2021-02-27] MEDS ORDERED: tPA-cathflo 2 MG/2 ml IV flush IVF ONE (20:55)
[2021-02-27] MEDS: insulin glargine (Lantus) pen - multi-dose SQ SCH (21:22)
[2021-02-28] VITALS (25 sets, daily range): BP systolic 80–144; BP diastolic 53–83
[2021-02-28] MEDS: amiodarone/D5 360MG/200ML BAG 200 ML IV SCH ×5 (00:20→20:29)
[2021-02-28] MEDS: methylPREDNISolone sod succ 125mg/2ml vial IV SCH ×3 (01:17→16:25)
[2021-02-28] MEDS: NORepinephrine 8mg/ 250ml NS 250 ML IV SCH ×3 (01:25→16:21)
[2021-02-28] MEDS: dexmedetomidine/D5W 100mL 100 ML IV SCH ×7 (01:34→21:38)
[2021-02-28 03:26] LABS: BASOPHILS % (AUTO) 0.1 % (0-1); EOSINOPHILS % (AUTO) 0 % (0-6); HEMATOCRIT 49.1 % (42.0-52.0); HEMOGLOBIN 16.1 g/dl (14.0-17.9); LYMPHOCYTES # (AUTO) 0.4 X10'3 (1.1-4.8); LYMPHOCYTES % (AUTO) 3.9 % (21-51); MEAN CORPUSCULAR HEMOGLOBIN 30.2 PG (27.0-31.0); MEAN CORPUSCULAR HGB CONC 32.8 g/dL (33.0-36.5); MEAN CORPUSCULAR VOLUME 91.8 FL (78-98); MONOCYTES # (AUTO) 0.4 X10'3 (0-0.9); MONOCYTES % (AUTO) 4.5 % (2-12); NEUTROPHILS # (AUTO) 9.1 X10'3 (1.8-7.7); NEUTROPHILS % (AUTO) 91.5 % (42-75); PLATELET COUNT 210 X10'3 (140-440); RED BLOOD COUNT 5.35 X10'6 (4.70-6.10); RED CELL DISTRIBUTION WIDTH 14.3 % (11.5-14.5)
[2021-02-28 03:43] LABS: D-DIMER 7.74 MG/L FEU (0-0.50)
[2021-02-28] MEDS: insulin Lispro (HumaLOG) vial - multi-dose SQ SCH ×4 (03:58→20:40)
[2021-02-28 04:23] LABS: ALANINE AMINOTRANSFERASE 46 U/L (12-78); ALBUMIN 2.3 G/DL (3.4-5.0); ALBUMIN/GLOBULIN RATIO 0.5 (1.1-1.5); ALKALINE PHOSPHATASE 68 IU/L (46-116); ANION GAP 10 (8-16); ASPARTATE AMINO TRANSFERASE 22 U/L (10-37); BILIRUBIN,TOTAL 0.4 MG/DL (0.1-1.0); BLOOD UREA NITROGEN 31 MG/DL (7-18); BUN/CREATININE RATIO 20.8 (5.4-32.0); C-REACTIVE PROTEIN 4.81 MG/DL (0.0-0.5); CALCIUM 8.6 MG/DL (8.5-10.1); CHLORIDE 118 MMOL/L (99-107); CREATININE 1.49 MG/DL (0.60-1.10); GLUCOSE 260 MG/DL (70-104); MAGNESIUM 2.8 MG/DL (1.5-2.4); POTASSIUM 4.5 MMOL/L (3.5-5.1); TOTAL CARBON DIOXIDE 27.1 MMOL/L (24-32); TOTAL PROTEIN 6.7 G/DL (6.4-8.2); eGFR 50 ML/MIN
[2021-02-28 04:26] LABS: SODIUM 155 MMOL/L (135-145)
[2021-02-28] MEDS ORDERED: sodium chloride 0.45% 1,000 ML IV SCH (05:15)
[2021-02-28] MEDS: K and/or MAG REPLACEMENT MC SCH ×2 (08:00→20:24)
[2021-02-28] MEDS: lactose-reduced food (Ensure Enlive) - 237ml bottle PO SCH ×3 (08:00→16:21)
[2021-02-28] MEDS: atorvastatin 20mg tablet PO SCH (08:00)
[2021-02-28] MEDS: docusate sod 100mg capsule PO SCH ×2 (08:00→20:31)
[2021-02-28 09:10] LABS: ABG BASE EXCESS 0.1 mmol/L (-2.0-2.0); ABG HCO3 22.3 mmol/L (22.0-26.0); ABG OXYGEN SATURATION 82.3 % (94-97); ABG PCO2 (T) 30.4 mmHg (35.0-48.0); ABG PO2 (T) 43.9 mmHg (75.0-100.0); ALLEN'S TEST POSITIVE; FCOHb 0.2 % (0.0-3.9); FMetHb 0.3 % (0.0-1.5); FO2Hb 81.9 % (94-97); RESPIRATORY RATE 26 b/min; TIDAL VOLUME 779 mL; TOTAL HEMOGLOBIN 17.4 G/dl (14.0-18.0)
[2021-02-28] MEDS: REMDESIVIR INJ 100 MG in normal saline 100ml IV soln 80 ML IV SCH (09:19)
[2021-02-28] MEDS: enoxaparin 100mg/ml syringe SUBCUT SCH ×2 (09:38→20:30)
[2021-02-28] MEDS: enoxaparin 50mg/0.5ml (from 3ml vial) syringe SUBCUT SCH ×2 (09:59→20:31)
[2021-02-28] MEDS: sodium chloride 0.45% 1,000 ML IV SCH ×2 (11:05→19:05)
--- NOTE | 2021-02-28 15:07 | NUR ---
Wound Care consulted on patient for groin excoriation. Upon assessment, patient had interdry in groin folds and skin was clear and intact. Recommended continued use of interdry.
[2021-02-28] MEDS: insulin glargine (Lantus) pen - multi-dose SQ SCH (20:37)
[2021-02-28 22:31] LABS: ABG BASE EXCESS -1.6 mmol/L (-2.0-2.0); ABG HCO3 19.4 mmol/L (22.0-26.0); ABG OXYGEN SATURATION 81.3 % (94-97); ABG PO2 (T) 39.4 mmHg (75.0-100.0); ALLEN'S TEST POSITIVE; FCOHb 0.6 % (0.0-3.9); FMetHb 0.1 % (0.0-1.5); FO2Hb 80.7 % (94-97); PATIENT TEMPERATURE 35.6; RESPIRATORY RATE 26 b/min; TOTAL HEMOGLOBIN 17.5 G/dl (14.0-18.0)
[2021-03-01] VITALS: BP 127/79
[2021-03-01] MEDS: methylPREDNISolone sod succ 125mg/2ml vial IV SCH
[2021-03-01] MEDS: NORepinephrine 8mg/ 250ml NS 250 ML IV SCH ×2 (00:25→05:32)
[2021-03-01] MEDS: morphine 2 MG/ML inj. syringe IV PRN (00:51)
[2021-03-01 01:02] VITALS: BP 119/60
[2021-03-01 01:20] LABS: ABG HCO3 22.2 mmol/L (22.0-26.0); ABG OXYGEN SATURATION 76.7 % (94-97); ABG PCO2 (T) 28.3 mmHg (35.0-48.0); ABG PO2 (T) 34.9 mmHg (75.0-100.0); ALLEN'S TEST POSITIVE; FCOHb 0.3 % (0.0-3.9); FMetHb 0.2 % (0.0-1.5); FO2Hb 76.3 % (94-97); PATIENT TEMPERATURE 35.3; RESPIRATORY RATE 24 b/min; TOTAL HEMOGLOBIN 18.5 G/dl (14.0-18.0)
[2021-03-01 02:00] VITALS: BP 137/81
[2021-03-01] MEDS: dexmedetomidine/D5W 100mL 100 ML IV SCH ×2 (02:12)
[2021-03-01 02:36] LABS: ABG BASE EXCESS -0.1 mmol/L (-2.0-2.0); ABG HCO3 21.4 mmol/L (22.0-26.0); ABG OXYGEN SATURATION 81.8 % (94-97); ABG PCO2 (T) 26.1 mmHg (35.0-48.0); ABG PO2 (T) 38.7 mmHg (75.0-100.0); ALLEN'S TEST POSITIVE; FCOHb 0.2 % (0.0-3.9); FMetHb 0.2 % (0.0-1.5); FO2Hb 81.5 % (94-97); PATIENT TEMPERATURE 35.3; RESPIRATORY RATE 26 b/min; TOTAL HEMOGLOBIN 17.9 G/dl (14.0-18.0)
[2021-03-01 03:00] VITALS: BP 112/63
[2021-03-01] MEDS: sodium chloride 0.45% 1,000 ML IV SCH (03:05)
[2021-03-01] MEDS: insulin Lispro (HumaLOG) vial - multi-dose SQ SCH (03:19)
[2021-03-01 03:27] LABS: BASOPHILS % (AUTO) 0.3 % (0-1); EOSINOPHILS % (AUTO) 0 % (0-6); LYMPHOCYTES # (AUTO) 0.3 X10'3 (1.1-4.8); MEAN CORPUSCULAR HEMOGLOBIN 30.1 PG (27.0-31.0); MEAN CORPUSCULAR HGB CONC 33.3 g/dL (33.0-36.5); MEAN CORPUSCULAR VOLUME 90.3 FL (78-98); MEAN PLATELET VOLUME 9.8 FL (7.4-10.4); MONOCYTES # (AUTO) 0.2 X10'3 (0-0.9); MONOCYTES % (AUTO) 2.7 % (2-12); NEUTROPHILS # (AUTO) 7.9 X10'3 (1.8-7.7); PLATELET COUNT 152 X10'3 (140-440); RED BLOOD COUNT 5.65 X10'6 (4.70-6.10); RED CELL DISTRIBUTION WIDTH 14.2 % (11.5-14.5); WHITE BLOOD COUNT 8.5 X10'3 (4.5-11.0)
[2021-03-01 03:42] LABS: D-DIMER 0.67 MG/L FEU (0-0.50)
[2021-03-01 03:45] LABS: ALANINE AMINOTRANSFERASE 40 U/L (12-78); ALBUMIN/GLOBULIN RATIO 0.4 (1.1-1.5); ALKALINE PHOSPHATASE 69 IU/L (46-116); ANION GAP 10 (8-16); ASPARTATE AMINO TRANSFERASE 28 U/L (10-37); BILIRUBIN,TOTAL 0.8 MG/DL (0.1-1.0); BLOOD UREA NITROGEN 35 MG/DL (7-18); BUN/CREATININE RATIO 21.7 (5.4-32.0); CALCIUM 8.5 MG/DL (8.5-10.1); CHLORIDE 118 MMOL/L (99-107); CREATININE 1.61 MG/DL (0.60-1.10); GLUCOSE 169 MG/DL (70-104); MAGNESIUM 2.5 MG/DL (1.5-2.4); POTASSIUM 4.2 MMOL/L (3.5-5.1); SODIUM 154 MMOL/L (135-145); TOTAL CARBON DIOXIDE 25.6 MMOL/L (24-32); TOTAL PROTEIN 6.6 G/DL (6.4-8.2); eGFR 46 ML/MIN
[2021-03-01] MEDS ORDERED: midazolam 100mg in NS 100ml 100 ML IV PRN (03:55)
[2021-03-01] MEDS ORDERED: FENTANYL-0.9 % NACL/PF 100 ML IV PRN (03:55)
[2021-03-01 04:00] VITALS: BP 69/20
[2021-03-01] MEDS ORDERED: midazolam 1 mg/ML 2ml injection ONE (04:02)
--- NOTE | 2021-03-01 04:07 | NUR ---
RN Note -Assumed pt care, pt being intubated
[2021-03-01 04:17] LABS: ABG HCO3 23.6 mmol/L (22.0-26.0); ABG OXYGEN SATURATION 48.3 % (94-97); ABG PCO2 (T) 56.6 mmHg (35.0-48.0); ABG PO2 (T) 33.4 mmHg (75.0-100.0); FCOHb 0.4 % (0.0-3.9); FMetHb 0.1 % (0.0-1.5); FO2Hb 48.1 % (94-97); PEEP 15 cm H2O; RESPIRATORY RATE 18 b/min; TIDAL VOLUME 500 mL; TOTAL HEMOGLOBIN 18.6 G/dl (14.0-18.0)
[2021-03-01] MEDS ORDERED: MIDAZolam 5mg/ml 2ml vial IV ONE (04:25)
[2021-03-01] MEDS ORDERED: sodium bicarbonate (8.4%) 1 mEq/ml syringe IV ONE (04:40)
[2021-03-01] MEDS ORDERED: CISatracurium besylate inj. 100 MG in normal saline 100ml IV soln 90 ML IV SCH (04:40)
[2021-03-01] MEDS ORDERED: vasopressin inj. 40 UNIT in normal saline 50ml IV soln 38 ML IV SCH (04:45)
--- NOTE | 2021-03-01 04:55 | NUR ---
RN Note -Pt bradied down to HR of 30s. Dr. Phelps already on bedside monitor. Code began at 0455. Code sheet in pt chart.
[2021-03-01] MEDS ORDERED: epiNEPHrine inj 5 MG in normal saline 250ml IV soln 245 ML IV SCH (05:00)
[2021-03-01] MEDS ORDERED: epiNEPHrine 1 mg/ml 30ml MDV ONE (05:00)
--- NOTE | 2021-03-01 05:24 | NUR ---
Pt coded 2nd time. Dr. Phelps still on bedside monitor. Niece contacted during code by charge nurse. Cardiac clinical technologist present during code. No cardiac motion detected. Time of 0535. Code sheet in pt's chart.
[2021-03-01 05:36] VITALS: BP 100/50
--- NOTE | 2021-03-01 06:30 | NUR ---
Spoke to [facility]. Pt not a candidate due to Covid dx
--- NOTE | 2021-03-01 07:02 | NUR ---
Spoke to dea Fang, and confirmed that pt to be sent to [facility] on [address] in [place].
--- NOTE | 2021-03-01 07:05 | NUR ---
Spoke to [facility] on [address] to confirm [facility].
[2021-03-01] MEDS ORDERED: sod chloride 0.9% 10ml flush syringe IV ONE (08:00)
[2021-03-01] MEDS ORDERED: calcium chloride 100 MG/1 ML inj IV ONE (08:00)
[2021-03-01] MEDS ORDERED: sodium bicarbonate (8.4%) 1 mEq/ml syringe ONE (08:00)
[2021-03-01] MEDS ORDERED: atropine 0.1mg/ml 10ml syringe ONE (08:00)
[2021-03-01] MEDS ORDERED: epiNEPHrine 0.1mg/ml 10ml syringe ONE (08:00)
== END 2021-03-01 08:00 | DRG 208 ==
LOC: ER 10:10 → ED HOLD 11:55 → ORTHO 4S 16:30 → CICU 2S 02-25 03:57
PROVIDERS: ADMIT Family Medicine; ATTEND Family Medicine
PROC: 5A0935A Assistance with Respiratory Ventilation, Less than 24 Consecutive Hours, High Flow/Velocity Cannula (ICD-10-PCS; 2021-02-23)
PROC: XW033E5 Introduction of Remdesivir Anti-infective into Peripheral Vein, Percutaneous Approach, New Technology Group 5 (ICD-10-PCS; 2021-02-24)
PROC: 5A0935A Assistance with Respiratory Ventilation, Less than 24 Consecutive Hours, High Flow/Velocity Cannula (ICD-10-PCS; 2021-02-24)
PROC: 5A09357 Assistance with Respiratory Ventilation, Less than 24 Consecutive Hours, Continuous Positive Airway Pressure (ICD-10-PCS; 2021-02-24)
PROC: 5A09457 Assistance with Respiratory Ventilation, 24-96 Consecutive Hours, Continuous Positive Airway Pressure (ICD-10-PCS; 2021-02-25)
PROC: 5A09457 Assistance with Respiratory Ventilation, 24-96 Consecutive Hours, Continuous Positive Airway Pressure (ICD-10-PCS; 2021-02-26)
PROC: 02HV33Z Insertion of Infusion Device into Superior Vena Cava, Percutaneous Approach (ICD-10-PCS; 2021-02-27)
PROC: B548ZZA Ultrasonography of Superior Vena Cava, Guidance (ICD-10-PCS; 2021-02-27)
PROC: 5A1935Z Respiratory Ventilation, Less than 24 Consecutive Hours (ICD-10-PCS; principal; 2021-03-01)
PROC: 0BH17EZ Insertion of Endotracheal Airway into Trachea, Via Natural or Artificial Opening (ICD-10-PCS; 2021-03-01)
PROC: 5A12012 Performance of Cardiac Output, Single, Manual (ICD-10-PCS; 2021-03-01)
DX: U07.1 COVID-19 (principal); J12.82 Pneumonia due to coronavirus disease 2019; J80 Acute respiratory distress syndrome; Z68.43 Body mass index [BMI] 50.0-59.9, adult; N17.9 Acute kidney failure, unspecified; I50.9 Heart failure, unspecified; E78.5 Hyperlipidemia, unspecified; E11.9 Type 2 diabetes mellitus without complications; I46.9 Cardiac arrest, cause unspecified; I11.0 Hypertensive heart disease with heart failure; Z60.2 Problems related to living alone; I95.9 Hypotension, unspecified; I45.6 Pre-excitation syndrome; R79.82 Elevated C-reactive protein (CRP); E03.9 Hypothyroidism, unspecified; E66.01 Morbid (severe) obesity due to excess calories; I48.91 Unspecified atrial fibrillation; Z90.49 Acquired absence of other specified parts of digestive tract; Z79.899 Other long term (current) drug therapy; Z82.49 Family history of ischemic heart disease and other diseases of the circulatory system
CPT/HCPCS: 36415; 36573; 36600; 71045; 80053; 82803; 82948; 83036; 83735; 83880; 84145; 84484; 85018; 85025; 85379; 86140; 87081; 92950; 93005; 93308; 94002; 94660; 94760; 96374; 97161; 97530; 99285; G0378; J0171; J0461; J1100; J1650; J1815; J2250; J2270; J2405; J2930; J2997; J3010; J3490; J7030; J7050